=== PATIENT | female | born 1960 | race Asian ===

== ENCOUNTER 2020-08-25 06:05 | Day surgery (SDC) | payer OTHER, SELFPAY ==
[~2020-08-25] VITALS: Ht 157.5 cm; Wt 63.5 kg
[2020-08-25] MEDS ORDERED: LIDOCAINE 2% 100 MG/5 ML UJET TP ONE (07:36)
[2020-08-25] MEDS ORDERED: fentaNYL citrate 0.05 MG/ML VIAL ONE (07:36)
[2020-08-25] MEDS ORDERED: fentaNYL citrate 0.05 MG/ML VIAL IVP ONE (09:05)
== END 2020-08-25 09:18 | disposition home or self-care (01) ==
LOC: MDS 06:05 → MFCC 06:08 → MDS 09:18
PROVIDERS: ATTEND Internal Medicine Gastroenterology
DX: Z12.11 Encounter for screening for malignant neoplasm of colon (principal); D12.3 Benign neoplasm of transverse colon; K57.30 Diverticulosis of large intestine without perforation or abscess without bleeding; Z79.899 Other long term (current) drug therapy; Z20.828 Contact with and (suspected) exposure to other viral communicable diseases
CPT/HCPCS: 45385; J3010; U0003